=== PATIENT | male | born 1980 | race Caucasian/White ===

== ENCOUNTER 2018-07-19 20:56 | Emergency (ER) | payer OTHER ==
--- NOTE | 2018-07-19 20:59 | ER Report ---
History and Physical Time Seen By MD: 21:00 HPI/ROS CHIEF COMPLAINT: Right flank pain HISTORY OF PRESENT ILLNESS: HISTORY OF PRESENT ILLNESS: 50-year-old male with a history of irritable bowel syndrome presents ambulatory to the ER complaining of severe right flank pain for most of the day. Tonight. It's unbearable. He's been vomiting. Patient notes he does have a family history of kidney stones. He's never had kidney stones but both his dad and sister do. Patient took his Bentyl without improvement of his symptoms. REVIEW OF SYSTEMS: Respiratory: No cough, no dyspnea. Cardiovascular: No chest pain, no palpitations. Gastrointestinal: As above Musculoskeletal: As above Allergies: Coded Allergies: No Known Drug Allergies (Unverified , 07/19/18) Home Meds Active Scripts Tamsulosin Hcl (FLOMAX) 0.4 Mg Cap.er.24h, 0.4 MG PO QHS for ureteral relaxation, #14 CAP Prov:NORA MURPHY DO 07/19/18 Ondansetron Hcl (ZOFRAN) 4 Mg Tablet, 4 MG PO Q6H PRN for NAUSEA/VOMITING, #15 TAB Prov:NORA MURPHY DO 07/19/18 Hydrocodone Bit/Acetaminophen (HYDROCODON-ACETAMINOPHEN 5-325) 1 Each Tablet, 1- 2 EACH PO Q4-6H PRN for PAIN, #15 TAKE ONE TABLET BY MOUTH EVERY 4-6 HOURS NEEDED FOR PAIN Prov:NORA MURPHY DO 07/19/18 Reported Medications Dicyclomine Hcl (DICYCLOMINE HCL) 10 Mg Capsule, 10 MG PO QID, CAPSULE 07/19/18 Reviewed Nurses Notes: Yes Old Medical Records Reviewed: Yes Constitutional Vital Sign - Last 24 Hours 07/19/18 07/19/18 07/19/18 07/19/18 20:56 21:02 21:06 21:11 Temp 98.6 Pulse ??? 80 69 Resp 14 B/P (MAP) 147/98 (114) 147/98 Pulse Ox 97 94 O2 Delivery Room Air 07/19/18 07/19/18 07/19/18 07/19/18 21:26 21:30 21:41 21:56 Pulse 65 75 73 B/P (MAP) 143/69 (93) Pulse Ox 95 97 79 O2 Delivery Room Air Room Air 12/2/07/19/18 07/19/18 07/19/18 21:58 22:00 22:05 22:20 Pulse 65 61 B/P (MAP) 138/78 (98) Pulse Ox 92 97 O2 Flow Rate 2.0 07/19/18 07/19/18 07/19/18 07/19/18 22:30 22:35 22:50 23:00 Pulse 61 75 B/P (MAP) 126/71 (89) 132/77 (95) Pulse Ox 97 95 Intake and Output 07/19/18 07/19/18 07/20/18 14:58 22:58 06:58 Intake Total 1000 ml Balance 1000 ml Physical Exam General Appearance: The patient is alert, has no immediate need for airway protection and no current signs of toxicity. Moderate distress, vital signs stable, afebrile, pulse ox normal, slightly pale appearing Eyes: Pupils equal and round no injection. Respiratory: Chest is non tender, lungs are clear to auscultation. Cardiac: regular rate and rhythm Gastrointestinal: Abdomen is soft and non tender, no masses, bowel sounds normal., Positive right CVA tenderness Musculoskeletal: Neck: Neck is supple and non tender. Extremities have full range of motion and are non tender. Skin: No rashes or lesions. DIFFERENTIAL DIAGNOSIS: After history and physical exam differential diagnosis was considered for flank pain including but not limited to musculoskeletal causes, kidney stone, pyelonephritis, shingles, and intra-abdominal causes such as diverticulitis and appendicitis. Medical Decision Making Data Points Result Diagram: 07/19/18201907/19/182019 Laboratory Hematology Test 07/19/18 20:20 07/19/18 21:00 Red Blood Count 5.67 M/uL (4.00-5.60) Mean Corpuscular Volume 85.2 fL (80.0-96.0) Mean Corpuscular Hemoglobin 29.9 pg (26.0-33.0) Mean Corpuscular Hemoglobin Concent 35.1 g/dL (32.0-36.0) Red Cell Distribution Width 13.0 % (11.5-14.5) Mean Platelet Volume 7.4 fL (7.2-11.1) Neutrophils (%) (Auto) 68.9 % (39.4-72.5) Lymphocytes (%) (Auto) 17.2 % (17.6-49.6) Monocytes (%) (Auto) 10.2 % (4.1-12.4) Eosinophils (%) (Auto) 1.3 % (0.4-6.7) Basophils (%) (Auto) 2.4 % (0.3-1.4) Nucleated RBC Relative Count (auto) 0.0 /100WBC Neutrophils # (Auto) 5.3 K/uL (2.0-7.4) Lymphocytes # (Auto) 1.3 K/uL (1.3-3.6) Monocytes # (Auto) 0.8 K/uL (0.3-1.0) Eosinophils # (Auto) 0.1 K/uL (0.0-0.5) Basophils # (Auto) 0.2 K/uL (0.0-0.1) Nucleated RBC Absolute Count (auto) 0.00 K/uL Sodium Level 136 mmol/L (137-145) Potassium Level 4.2 mmol/L (3.5-5.0) Chloride Level 104 mmol/L (98-107) Carbon Dioxide Level 21 mmol/L (22-30) Blood Urea Nitrogen 12 mg/dl (9-21) Creatinine 1.00 mg/dl (0.66-1.25) Glomerular Filtration Rate Calc > 60.0 Random Glucose 107 mg/dl (75-110) Lactate 1.8 mmol/L (0.7-2.1) Calcium Level 9.5 mg/dl (8.4-10.2) Total Bilirubin 0.6 mg/dl (0.2-1.3) Aspartate Amino Transf (AST/SGOT) 22 U/L (0-35) Alanine Aminotransferase (ALT/SGPT) 30 U/L (0-56) Alkaline Phosphatase 54 U/L (0-126) Total Protein 7.5 g/dl (6.3-8.2) Albumin 4.4 g/dl (3.5-5.0) Amylase Level 36 U/L (0-110) Lipase 75 U/L (23-300) Urine Color Yellow Urine Clarity Clear Urine pH 5.0 pH (4.8-9.5) Urine Specific [place] 1.010 Urine Protein 30 mg/dL (NEGATIVE) Urine Glucose (UA) Negative mg/dL (NEGATIVE) Urine Ketones Negative mg/dL (NEGATIVE) Urine Blood Large (NEGATIVE) Urine Nitrite Negative (NEGATIVE) Urine Bilirubin Negative (NEGATIVE) Urine Urobilinogen Negative mg/dL (0.2-1.9) Urine Leukocyte Esterase Negative (NEGATIVE) Urine RBC 794 /HPF (0-2/HPF) Urine WBC 4 /HPF (0-5/HPF) Urine Squamous Epithelial Cells None /LPF (</=FEW) Urine Bacteria Few /HPF (NONE-FEW) Urine Mucus Few /HPF (NONE-FEW) Chemistry Test 07/19/18 20:20 07/19/18 21:00 White Blood Count 7.8 k/uL (4.5-11.0) Red Blood Count 5.67 M/uL (4.00-5.60) Hemoglobin 16.9 g/dL (14.0-18.0) Hematocrit 48.3 % (42.0-52.0) Mean Corpuscular Volume 85.2 fL (80.0-96.0) Mean Corpuscular Hemoglobin 29.9 pg (26.0-33.0) Mean Corpuscular Hemoglobin Concent 35.1 g/dL (32.0-36.0) Red Cell Distribution Width 13.0 % (11.5-14.5) Platelet Count 237 K/uL (150-450) Mean Platelet Volume 7.4 fL (7.2-11.1) Neutrophils (%) (Auto) 68.9 % (39.4-72.5) Lymphocytes (%) (Auto) 17.2 % (17.6-49.6) Monocytes (%) (Auto) 10.2 % (4.1-12.4) Eosinophils (%) (Auto) 1.3 % (0.4-6.7) Basophils (%) (Auto) 2.4 % (0.3-1.4) Nucleated RBC Relative Count (auto) 0.0 /100WBC Neutrophils # (Auto) 5.3 K/uL (2.0-7.4) Lymphocytes # (Auto) 1.3 K/uL (1.3-3.6) Monocytes # (Auto) 0.8 K/uL (0.3-1.0) Eosinophils # (Auto) 0.1 K/uL (0.0-0.5) Basophils # (Auto) 0.2 K/uL (0.0-0.1) Nucleated RBC Absolute Count (auto) 0.00 K/uL Glomerular Filtration Rate Calc > 60.0 Lactate 1.8 mmol/L (0.7-2.1) Calcium Level 9.5 mg/dl (8.4-10.2) Total Bilirubin 0.6 mg/dl (0.2-1.3) Aspartate Amino Transf (AST/SGOT) 22 U/L (0-35) Alanine Aminotransferase (ALT/SGPT) 30 U/L (0-56) Alkaline Phosphatase 54 U/L (0-126) Total Protein 7.5 g/dl (6.3-8.2) Albumin 4.4 g/dl (3.5-5.0) Amylase Level 36 U/L (0-110) Lipase 75 U/L (23-300) Urine Color Yellow Urine Clarity Clear Urine pH 5.0 pH (4.8-9.5) Urine Specific [place] 1.010 Urine Protein 30 mg/dL (NEGATIVE) Urine Glucose (UA) Negative mg/dL (NEGATIVE) Urine Ketones Negative mg/dL (NEGATIVE) Urine Blood Large (NEGATIVE) Urine Nitrite Negative (NEGATIVE) Urine Bilirubin Negative (NEGATIVE) Urine Urobilinogen Negative mg/dL (0.2-1.9) Urine Leukocyte Esterase Negative (NEGATIVE) Urine RBC 794 /HPF (0-2/HPF) Urine WBC 4 /HPF (0-5/HPF) Urine Squamous Epithelial Cells None /LPF (</=FEW) Urine Bacteria Few /HPF (NONE-FEW) Urine Mucus Few /HPF (NONE-FEW) Urinalysis Test 07/19/18 21:00 Urine Color Yellow Urine Clarity Clear Urine pH 5.0 pH (4.8-9.5) Urine Specific [place] 1.010 Urine Protein 30 mg/dL (NEGATIVE) Urine Glucose (UA) Negative mg/dL (NEGATIVE) Urine Ketones Negative mg/dL (NEGATIVE) Urine Blood Large (NEGATIVE) Urine Nitrite Negative (NEGATIVE) Urine Bilirubin Negative (NEGATIVE) Urine Urobilinogen Negative mg/dL (0.2-1.9) Urine Leukocyte Esterase Negative (NEGATIVE) Urine RBC 794 /HPF (0-2/HPF) Urine WBC 4 /HPF (0-5/HPF) Urine Squamous Epithelial Cells None /LPF (</=FEW) Urine Bacteria Few /HPF (NONE-FEW) Urine Mucus Few /HPF (NONE-FEW) EKG/Imaging Imaging Results: CT scan of the abdomen and pelvis without contrast was obtained. The results of the study are EXAMINATION: CT abdomen and pelvis without IV contrast HISTORY: Right flank pain. TECHNIQUE: Axial CT images of the abdomen and pelvis were obtained without IV contrast, with coronal and sagittal 2D reconstructed images. One of the following dose optimization techniques was utilized in the performance of this exam: Automated exposure control; adjustment of the mA and/or kV according to the patient's size; or use of an iterative reconstruction technique. Specific details can be referenced in the facility's radiology CT exam operational policy. COMPARISON: None. FINDINGS: Evaluation of the solid and viscus parenchymal organs is limited without the benefit of IV contrast. Kidney/ureters/bladder: Mild hydronephrosis of the right kidney. There is an obstructing 5 mm calculus in the upper right ureter at the UPJ. Additional nonobstructing 2 mm calculus in the lower pole of the right kidney. Single nonobstructing 2 mm calculus in the mid left kidney. The left kidney is negative for hydronephrosis. The urinary bladder is moderately distended and grossly unremarkable. Liver: Negative. Gallbladder and bile ducts: Negative. Spleen: Negative. Pancreas: Negative. Adrenal glands: Negative. Bowel and peritoneum: The small bowel and colon are unremarkable. Normal appendix. No free fluid or free intraperitoneal air. Lymph node assessment: Negative. Vessels: Negative. Musculoskeletal: Negative. Body wall: Negative. Lung bases: Negative. IMPRESSION: 1. Obstructing 5 mm calculus in the upper right ureter at the UPJ, with mild right hydronephrosis. 2. Additional small bilateral nonobstructing renal calculi. 3. No other acute intra-abdominal findings. The study was read by the radiologist. I viewed the images myself on the PACS system. ED Course/Re-evaluation Clinical Indication for ER IV: Hydration, IV Access ED Course Patient was admitted to an examination room. H&P was done. The differential diagnoses was considered. On clinical examination. Patient has severe right flank pain. He has a history of IBS. He states is much worse in any was IBS is ever been. He took Bentyl without improvement. Peripheral IV was established. He was medicated with Zofran and fentanyl. Did not provide adequate pain relief. He was given Dilaudid 0.5 mg with improvement of his pain. His urinalysis returned with hematuria. He was sent over for CAT scan without contrast of his abdomen and pelvis which showed a 5 mm stone on the right side with hydronephrosis. Patient be discharged home on Flomax, hydrocodone and Zofr an. Given information follow-up with urology. Decision to Disposition Date: Jul 19, 2018 Decision to Disposition Time: 22:50 Depart Departure Latest Vital Signs Vital Signs Date Time Temp Pulse Resp B/P (MAP) Pulse Ox O2 Delivery O2 Flow Rate FiO2 07/19/18 23:00 132/77 (95) 07/19/18 22:50 75 95 07/19/18 21:58 2.0 07/19/18 21:56 Room Air 07/19/18 21:06 98.6 14 Impression: Primary Impression: Right kidney stone Additional Impression: IBS (irritable bowel syndrome) Condition: Improved Disposition: HOME OR SELF-CARE Referrals: KEVIN ALANIZ MD, ERIC J MD New Scripts Tamsulosin Hcl (FLOMAX) 0.4 Mg Cap.er.24h 0.4 MG PO QHS for ureteral relaxation, #14 CAP Prov: NORA MURPHY DO 07/19/18 Ondansetron Hcl (ZOFRAN) 4 Mg Tablet 4 MG PO Q6H PRN for NAUSEA/VOMITING, #15 TAB Prov: NORA MURPHY DO 07/19/18 Hydrocodone Bit/Acetaminophen (HYDROCODON-ACETAMINOPHEN 5-325) 1 Each Tablet 1-2 EACH PO Q4-6H PRN for PAIN, #15 TAKE ONE TABLET BY MOUTH EVERY 4-6 HOURS NEEDED FOR PAIN Prov: NORA MURPHY DO 07/19/18 Patient Instructions: Kidney Stones (ED) Additional Instructions: Take ibuprofen 200 mg 3 tablets 3 times a day for inflammatory pain relief Drink plenty of fluids Follow-up with urology if unimproved in 3-5 days Return to the ER for any worsening Problem Qualifiers Additional Impression: IBS (irritable bowel syndrome) Irritable bowel syndrome type: unspecified Qualified Codes: K58.9 - Irritable bowel syndrome without diarrhea NORA MURPHY DO Jul 19, 2018 20:59
[2018-07-19] MEDS ORDERED: DICY10CA11 PO (21:02)
[2018-07-19] MEDS ORDERED: NS(*) 0.9% 1000 ML BAG 1,000 ML IV ONE (21:08)
[2018-07-19] MEDS ORDERED: fentaNYL CITR 100 MCG/2 ML AMP IVP ONE (21:10)
[2018-07-19] MEDS ORDERED: ONDANSETRON 4 MG/2 ML VIAL IVP ONE (21:10)
[2018-07-19 21:29] LABS: PLATELET COUNT, AUTOMATED 237 K/uL (150-450)
[2018-07-19] MEDS ORDERED: HYDROMORPHONE HCL 1 MG/ML SYRINGE IVP ONE (21:40)
[2018-07-19] MEDS ORDERED: KETOROLAC 30 MG/ML VIAL IVP ONE (21:40)
--- NOTE | 2018-07-19 22:37 | RADIOLOGY IMAGING REPORT ---
FACILITY: [facility] PATIENT NAME: Tom Cooney : 1980 MR: [id number] V: [id number] EXAM DATE: ORDERING PHYSICIAN: NORA MURPHY TECHNOLOGIST: Location: [facility] Patient: Tom Cooney : 1980 Visit/Account:[id number] Date of Sevice: 07/19/2018 EXAMINATION: CT abdomen and pelvis without IV contrast HISTORY: Right flank pain. TECHNIQUE: Axial CT images of the abdomen and pelvis were obtained without IV contrast, with bledsoe l and sagittal 2D reconstructed images. One of the following dose optimization techniques was utilized in the performance of this exam: Autom ated exposure control; adjustment of the mA and/or kV according to the patient's size; or use of an i terative reconstruction technique. Specific details can be referenced in the facility's radiology C T exam operational policy. COMPARISON: None. FINDINGS: Evaluation of the solid and viscus parenchymal organs is limited without the benefit of IV contrast. Kidney/ureters/bladder: Mild hydronephrosis of the right kidney. There is an obstructing 5 mm calculu s in the upper right ureter at the UPJ. Additional nonobstructing 2 mm calculus in the lower pole of the right kidney. Single nonobstructing 2 mm calculus in the mid left kidney. The left kidney is negative for hydroneph rosis. The urinary bladder is moderately distended and grossly unremarkable. Liver: Negative. Gallbladder and bile ducts: Negative. Spleen: Negative. Pancreas: Negative. Adrenal glands: Negative. Bowel and peritoneum: The small bowel and colon are unremarkable. Normal appendix. No free fluid or free intraperitoneal air. Lymph node assessment: Negative. Vessels: Negative. Musculoskeletal: Negative. Body wall: Negative. Lung bases: Negative. IMPRESSION: 1. Obstructing 5 mm calculus in the upper right ureter at the UPJ, with mild right hydronephrosis. 2. Additional small bilateral nonobstructing renal calculi. 3. No other acute intra-abdominal findings. Report Dictated By: Shen Pendleton MD at 07/19/2018 10:28 PM Report E-Signed By: Shen Pendleton MD at 07/19/2018 10:33 PM WSN:[id number]
[2018-07-19] MEDS ORDERED: ONDA4TAB97 PO (22:52)
[2018-07-19] MEDS ORDERED: TAMS0.4C25 PO (22:52)
[2018-07-19] MEDS ORDERED: LOR5/325 PO (22:52)
[2018-07-19] MEDS ORDERED: ACET/HYDROC 5/325MG TH ER ONLY 2 TAB/BOTTLE PO ONE ×2 (22:55)
[2018-07-19] MEDS ORDERED: TAMSULOSIN HCL 0.4 MG CAP PO ONE (22:55)
[2018-07-19] MEDS ORDERED: ONDANSETRON 4 MG ODT TH SL ONE (22:55)
[2018-07-19 23:00] VITALS: BP 132/77
[2018-07-20] MEDS ORDERED: KETO30CA16 IJ (13:46)
[2018-07-20] MEDS ORDERED: LEVO137T23 PO (15:13)
== END 2018-07-19 23:10 | disposition home or self-care (01) ==
LOC: ER 21:17
DX: N13.2 Hydronephrosis with renal and ureteral calculous obstruction (principal); K58.9 Irritable bowel syndrome, unspecified
CPT/HCPCS: 74176; 81001; 82150; 83605; 83690; 85025; 96361; 96374; 96375; 99284; J1170; J1885; J2405; J3010; J7030; S0119; 82040; 82247; 82310; 82374; 82435; 82565; 82947; 84075; 84132; 84155; 84295; 84450; 84460; 84520

== ENCOUNTER 2018-07-20 14:00 | Observation (INO) | payer OTHER ==
[~2018-07-20] VITALS: Ht 175.3 cm; Wt 82.3 kg
[~2018-07-20 14:00] MED LIST: DICY10CA11 PO; KETO30CA16 IJ; LOR5/325 PO; ONDA4TAB97 PO; TAMS0.4C25 PO
--- NOTE | 2018-07-20 14:09 | ER Report ---
History and Physical Time Seen By MD: 14:08 HPI/ROS CHIEF COMPLAINT: renal colic HISTORY OF PRESENT ILLNESS: pt presents from urologists office; known l renal stone with worsening pain. Pain is l flank, radiates to l groin, severe, sharp, slightly improving after toradol. + nausea, no vomiting. No change in urination. No diarrhea. REVIEW OF SYSTEMS: Constitutional: No fever, no chills. Eyes: No discharge. ENT: No sore throat. Cardiovascular: No chest pain, no palpitations. Respiratory: No cough, no shortness of breath. Gastrointestinal: above Genitourinary: no dysuria Musculoskeletal: No back pain. Skin: No rashes. Neurological: No headache. Remainder of the 14 system rev: Yes Allergies: Coded Allergies: No Known Drug Allergies (Unverified , 07/19/18) Home Meds Active Scripts Tamsulosin Hcl (FLOMAX) 0.4 Mg Cap.er.24h, 0.4 MG PO QHS for ureteral relaxation, #14 CAP Prov:NORA MURPHY DO 07/19/18 Ondansetron Hcl (ZOFRAN) 4 Mg Tablet, 4 MG PO Q6H PRN for NAUSEA/VOMITING, #15 TAB Prov:NORA MURPHY DO 07/19/18 Hydrocodone Bit/Acetaminophen (HYDROCODON-ACETAMINOPHEN 5-325) 1 Each Tablet, 1- 2 EACH PO Q4-6H PRN for PAIN, #15 TAKE ONE TABLET BY MOUTH EVERY 4-6 HOURS NEEDED FOR PAIN Prov:NORA MURPHY DO 07/19/18 Reported Medications Levothyroxine Sodium (LEVOTHYROXINE SODIUM) 137 Mcg Tablet, 1 TAB PO QDAY 07/20/18 Dicyclomine Hcl (DICYCLOMINE HCL) 10 Mg Capsule, 10 MG PO TID, CAPSULE 07/19/18 Reviewed Nurses Notes: Yes Hx Substance Use Disorder: No Hx Alcohol Use: No Constitutional Vital Sign - Last 24 Hours 07/20/18 07/20/18 07/20/18 14:12 14:12 14:15 Temp 98.1 Pulse 65 69 Resp 16 B/P (MAP) 123/85 123/85 (98) Pulse Ox 94 95 O2 Delivery Room Air Intake and Output 07/20/18 07/20/18 07/21/18 14:58 22:58 06:58 Intake Total 0 ml Balance 0 ml Physical Exam General Appearance: The patient is alert, has no immediate need for airway protection and no signs of toxicity. [ ] Eyes: Pupils equal and round no pallor or injection. ENT, Mouth: Mucous membranes are moist. Respiratory: no respiratory distress Cardiovascular: Regular rate and rhythm. Gastrointestinal: Abdomen is soft and non tender, no masses, bowel sounds normal. Neurological: alert, oriented Skin: Warm and dry, no rashes. Musculoskeletal: Extremities are nontender, nonswollen and have full range of motion. DIFFERENTIAL DIAGNOSIS: After history and physical exam differential diagnosis was considered for infected kidney stone, renal failure, renal colic or other emergent etiology. Medical Decision Making Data Points Result Diagram: 07/21/18 0520 07/21/18 0520 Laboratory Hematology Test 07/20/18 14:07 Urine Color Yellow Urine Clarity Clear Urine pH 6.0 pH (4.8-9.5) Urine Specific [place] 1.015 Urine Protein Negative mg/dL (NEGATIVE) Urine Glucose (UA) Negative mg/dL (NEGATIVE) Urine Ketones Trace mg/dL (NEGATIVE) Urine Blood Moderate (NEGATIVE) Urine Nitrite Negative (NEGATIVE) Urine Bilirubin Negative (NEGATIVE) Urine Urobilinogen Negative mg/dL (0.2-1.9) Urine Leukocyte Esterase Negative (NEGATIVE) Urine RBC 46 /HPF (0-2/HPF) Urine WBC 4 /HPF (0-5/HPF) Urine Squamous Epithelial Cells Few /LPF (</=FEW) Urine Amorphous Crystals Few /HPF Urine Bacteria Negative /HPF (NONE-FEW) Urine Mucus Few /HPF (NONE-FEW) Chemistry Test 07/20/18 14:07 Urine Color Yellow Urine Clarity Clear Urine pH 6.0 pH (4.8-9.5) Urine Specific [place] 1.015 Urine Protein Negative mg/dL (NEGATIVE) Urine Glucose (UA) Negative mg/dL (NEGATIVE) Urine Ketones Trace mg/dL (NEGATIVE) Urine Blood Moderate (NEGATIVE) Urine Nitrite Negative (NEGATIVE) Urine Bilirubin Negative (NEGATIVE) Urine Urobilinogen Negative mg/dL (0.2-1.9) Urine Leukocyte Esterase Negative (NEGATIVE) Urine RBC 46 /HPF (0-2/HPF) Urine WBC 4 /HPF (0-5/HPF) Urine Squamous Epithelial Cells Few /LPF (</=FEW) Urine Amorphous Crystals Few /HPF Urine Bacteria Negative /HPF (NONE-FEW) Urine Mucus Few /HPF (NONE-FEW) Urinalysis Test 07/20/18 14:07 Urine Color Yellow Urine Clarity Clear Urine pH 6.0 pH (4.8-9.5) Urine Specific [place] 1.015 Urine Protein Negative mg/dL (NEGATIVE) Urine Glucose (UA) Negative mg/dL (NEGATIVE) Urine Ketones Trace mg/dL (NEGATIVE) Urine Blood Moderate (NEGATIVE) Urine Nitrite Negative (NEGATIVE) Urine Bilirubin Negative (NEGATIVE) Urine Urobilinogen Negative mg/dL (0.2-1.9) Urine Leukocyte Esterase Negative (NEGATIVE) Urine RBC 46 /HPF (0-2/HPF) Urine WBC 4 /HPF (0-5/HPF) Urine Squamous Epithelial Cells Few /LPF (</=FEW) Urine Amorphous Crystals Few /HPF Urine Bacteria Negative /HPF (NONE-FEW) Urine Mucus Few /HPF (NONE-FEW) ED Course/Re-evaluation ED Course Pt improves after toradol admin prior to presentation. Defer opiates at this time. HD stable for admission to urologist. Decision to Disposition Date: Jul 20, 2018 Decision to Disposition Time: 14:10 Depart Departure Latest Vital Signs Vital Signs Date Time Temp Pulse Resp B/P (MAP) Pulse Ox O2 Delivery O2 Flow Rate FiO2 07/20/18 14:15 69 95 07/20/18 14:12 123/85 (98) 07/20/18 14:12 98.1 16 Room Air Impression: Primary Impression: Renal colic Condition: Condition Unchanged Disposition: Admitted from ER GABBY ROMERO MD Jul 20, 2018 14:09
[2018-07-20] MEDS ORDERED: HYDROMORPHONE HCL 1 MG/ML SYRINGE IVP ONE (14:10)
[2018-07-20 14:36] LABS: PLATELET COUNT, AUTOMATED 213 K/uL (150-450)
[2018-07-20 15:05] VITALS: BP 126/76
[2018-07-20] MEDS ORDERED: LEVO137T23 PO (15:13)
[2018-07-20] MEDS ORDERED: NALOXONE HCL 0.4 MG/ML VIAL IVP PRN (17:40)
[2018-07-20] MEDS ORDERED: ONDANSETRON 4 MG/2 ML VIAL IVP PRN (17:40)
[2018-07-20] MEDS ORDERED: HYDROmorphone HCL 2 MG/ML SDV IVP PRN (17:40)
[2018-07-20] MEDS: NS(*) 0.9% 1000 ML BAG 1,000 ML IV SCH (18:02)
[2018-07-20] MEDS: KETOROLAC 30 MG/ML VIAL IVP SCH ×2 (18:03→23:40)
[2018-07-20 19:20] VITALS: BP 125/69
[2018-07-20] MEDS: FAMOTIDINE 20 MG TAB PO SCH (20:12)
[2018-07-20 23:37] VITALS: BP 106/68
--- NOTE | 2018-07-21 00:01 | HISTORY AND PHYSICAL ---
DATE OF ADMISSION: July 20, 2018 CHIEF COMPLAINT Right renal colic. HISTORY OF PRESENT ILLNESS A 38-year-old gentleman with a past medical history significant only for irritable bowel syndrome, who was seen in the emergency room last night with acute right renal colic. He underwent CT scan imaging, which demonstrated a 5 mm stone in the proximal right ureter. His pain was initially controllable, but returned later this afternoon. I saw him in the office and gave him an intramuscular injection of Toradol 30 mg, and his pain really failed to improve. He was therefore taken to the emergency room for direct admission for parenteral narcotic and IV fluid hydration. PAST MEDICAL HISTORY Significant for irritable bowel syndrome. No previous urologic history. PAST SURGICAL HISTORY Negative for any previous urologic surgery. FAMILY HISTORY Positive for urolithiasis. SOCIAL HISTORY Negative for tobacco or alcohol usage. REVIEW OF SYSTEMS Negative with the exception of nausea and other symptoms listed in the history of present illness. PHYSICAL EXAMINATION GENERAL: Acutely uncomfortable-appearing 38-year-old gentleman. HEENT: Extraocular movements are intact. The sclerae are anicteric. NECK: There is no jugular venous distention. HEART: Regular in rate and rhythm. LUNGS: Clear bilaterally. ABDOMEN: Soft. There is moderate right CVA tenderness. The bladder is not palpable. There is no guarding or rebound tenderness. GENITOURINARY: Penis and testes are normal. No masses. EXTREMITIES: Lower extremities have no pretibial edema. IMPRESSION Acute right renal colic. PLAN Admit, IV fluid hydration, parenteral narcotic as needed. Strain all urine. I will make him n.p.o. after midnight in case his pain does not improve and he needs either a stent or stone manipulation. KAYLAN
[2018-07-21] MEDS: NS(*) 0.9% 1000 ML BAG 1,000 ML IV SCH (02:15)
[2018-07-21 02:17] VITALS: BP 115/79
[2018-07-21] MEDS: KETOROLAC 30 MG/ML VIAL IVP SCH (05:25)
--- NOTE | 2018-07-21 05:28 | RADIOLOGY IMAGING REPORT ---
FACILITY: [facility] PATIENT NAME: Tom Cooney : 1980 MR: [id number] V: [id number] EXAM DATE: ORDERING PHYSICIAN: DEVIN RAE TECHNOLOGIST: Location: [facility] Patient: Tom Cooney : 1980 Visit/Account:[id number] Date of Sevice: 07/21/2018 KUB SINGLE VIEW ABDOMEN HISTORY: Urolithiasis. COMPARISON: CT abdomen and pelvis 07/19/2018. FINDINGS: There is motion artifact. There is a calculus to the right of the spine, at the level of th e inferior endplate of L2, unchanged in position compared to the CT, compatible with obstructing righ t UPJ calculus. The punctate nonobstructing renal calculi identified on CT are not clearly seen on x- ray. Distribution of bowel gas is normal with bowel in all four quadrants as well as centrally. No dilated bowel loops. No free air. IMPRESSION: 1. No change in position of the right UPJ obstructing calculus. 2. Normal bowel gas pattern without obstruction. Report Dictated By: Pati Hines at 07/21/2018 5:20 AM Report E-Signed By: Pati Hines at 07/21/2018 5:23 AM WSN:[id number]
[2018-07-21 05:39] LABS: PLATELET COUNT, AUTOMATED 175 K/uL (150-450)
[2018-07-21 07:20] VITALS: BP 129/89
[2018-07-21] MEDS: FAMOTIDINE 20 MG TAB PO SCH (08:56)
--- NOTE | 2018-07-21 09:43 | Urology Discharge Summary ---
Discharge Summary Reason for Hosp/Final Diag: (1) Renal colic Status: Resolved (2) Right kidney stone Status: Acute Departure Weight (Pounds): 181 Weight (Ounces): 6.0 Result Diagram: 07/21/1851907/21/18519 Condition: Improved Discharge Instructions Home Meds Active Scripts Tamsulosin Hcl (FLOMAX) 0.4 Mg Cap.er.24h, 0.4 MG PO QHS for ureteral relaxation, #14 CAP Prov:NORA MURPHY DO 07/19/18 Ondansetron Hcl (ZOFRAN) 4 Mg Tablet, 4 MG PO Q6H PRN for NAUSEA/VOMITING, #15 TAB Prov:NORA MURPHY DO 07/19/18 Hydrocodone Bit/Acetaminophen (HYDROCODON-ACETAMINOPHEN 5-325) 1 Each Tablet, 1- 2 EACH PO Q4-6H PRN for PAIN, #15 TAKE ONE TABLET BY MOUTH EVERY 4-6 HOURS NEEDED FOR PAIN Prov:NORA MURPHY DO 07/19/18 Reported Medications Levothyroxine Sodium (LEVOTHYROXINE SODIUM) 137 Mcg Tablet, 1 TAB PO QDAY 07/20/18 Dicyclomine Hcl (DICYCLOMINE HCL) 10 Mg Capsule, 10 MG PO TID, CAPSULE 07/19/18 Venous Thromboembolism VTE Risk Patient's VTE Risk: Low VTE Diagnostic Test 2 Days Prior to Admit: No Antithrombotics Is Pt On Any Antithrombotics?: No Prophylaxis Tx Contraindicated Pharmacological Contraindicati: Pt at Low Risk for VTE Mechanical Contraindications: Pt at Low Risk for VTE DEVIN RAE MD Jul 21, 2018 09:43
--- NOTE | 2018-07-21 09:45 | Urology Progress Note ---
Subjective Patient Complains of: Neurological: No: Syncope, Confusion, Weakness, Dizziness, Slurred Speech, Other Cardiovascular: No: Chest Pain, Palpitations, Orthostatic Hypotension, Other Respiratory: No: Cough, Congestion, Shortness of Breath, Wheezing, Other Gastrointestinal: No Nausea, No Vomiting, No Flatus, No Bowel Movement, No Other Genitourinary: Other (mild right renal colic) Musculoskeletal: No: Pain, Sprain, Strain, Impaired Mobility, Other Physical Exam Vital Signs Date Time Temp Pulse Resp B/P (MAP) Pulse Ox O2 Delivery O2 Flow Rate FiO2 07/21/18 07:53 97 Room Air 07/21/18 07:20 97.9 73 18 129/89 (102) 07/21/18 02:17 0.5 Intake and Output 07/21/18 06:58 Intake Total 1995 ml Output Total 625 ml Balance 1370 ml Intake Oral 0 ml IV Total 1995 ml Output Urine Total 625 ml General Appearance: Alert, Awake Neuro: No Gross deficits GI: Soft and Non-Tender : No CVA Tenderness Extremities: Soft and Non Tender Result Diagram: 07/21/18 0520 07/21/18 0520 Assessment and Plan Problems: (1) Renal colic Status: Acute Assessment & Plan: Patient was admitted yesterday for acute right renal colic which resolved after parenteral pain medication. He is currently having very mild right renal colic. I reviewed the location of the stone in the laboratory results with the patient this morning. I do not think the stone has moved but it is apparent by KUB. We had a half hour discussion regarding treatment options including medical expulsive therapy, ureteroscopic laser lithotripsy with stent or ESWL. The relative risks and advantages of each approach were reviewed and the patient would like to try outpatient ESWL this coming . I will discharge him look to try and schedule him for outpatient ESWL 07/23 (2) Right kidney stone Status: Acute Exam Sepsis Risk: No Definite Risk DEVIN RAE MD Jul 21, 2018 09:45
[2018-07-21 09:55] VITALS: Ht 175.3 cm; Wt 82.3 kg
== END 2018-07-21 09:41 | disposition home or self-care (01) ==
LOC: ER 14:20 → INTOOBSV 14:27 → MED 14:27
PROVIDERS: ADMIT Urology; ATTEND Urology
DX: N20.0 Calculus of kidney (principal)
CPT/HCPCS: 36415; 74018; 81001; 85025; 96374; 99284; G0378; J1170; J1885; J2405; J7030; 82310; 82374; 82435; 82565; 82947; 84132; 84295; 84520

== ENCOUNTER → 2018-07-22 | Outpatient (CLI) | payer OTHER ==
[2018-07-21 09:55] VITALS: BMI 26.7
[~2018-07-22] MED LIST changes: +LEVO137T23 PO
== END ==
LOC: LAB 10:30
PROVIDERS: ATTEND Urology
DX: N20.0 Calculus of kidney (principal)
CPT/HCPCS: 82365; 88300

== ENCOUNTER → 2018-07-29 | Outpatient (REF) | payer OTHER ==
[2018-07-21 09:55] VITALS: BMI 26.7
== END ==
LOC: ZZSENDIN 12:19
PROVIDERS: ATTEND Urology
DX: Z02.9 Encounter for administrative examinations, unspecified (principal)

== ENCOUNTER → 2019-03-23 | Outpatient (CLI) | payer OTHER ==
[2018-07-21 09:55] VITALS: BMI 26.7
--- NOTE | 2019-03-23 16:40 | RADIOLOGY IMAGING REPORT ---
[place] [facility] [place] NAME: Tom Cooney : 1980 MR: [id number] V: [id number] EXAM DATE: ORDERING PHYSICIAN: DEVIN RAE TECHNOLOGIST: Location: [facility] Patient: Tom Cooney : 1980 Visit/Account:[id number] Date of Sevice: 03/23/2019 EXAMINATION: Single view abdomen HISTORY: Nephrolithiasis COMPARISON: July 21, 2018 FINDINGS: Previously identified calculus overlying the second and third lumbar transverse processes on the right is no longer seen. No new or additional urinary tract calculi. Osseous structures are unremarkable and the bowel gas pattern is nonobstructive. IMPRESSION: No definite calculi in the collecting system Report Dictated By: Marcell Cabrera MD at 03/23/2019 4:31 PM Report E-Signed By: Marcell Cabrera MD at 03/23/2019 4:32 PM WSN:[id number]
== END ==
LOC: RAD 16:19
PROVIDERS: ATTEND Urology
DX: N20.0 Calculus of kidney (principal); N23 Unspecified renal colic
CPT/HCPCS: 74018